=== PATIENT | female | born 1995 | race American Indian/Alaskan Native ===

== ENCOUNTER 2016-08-25 12:37 | Emergency (ER) | payer OTHER ==
[2016-08-25 12:57] VITALS: BP 130/81
[2016-08-25] MEDS ORDERED: TORADOL IM ONE (20:32)
--- NOTE | 2016-08-25 20:35 | Emergency Department Report ---
ED ENT HPI - General Chief complaint: Sore Throat Stated complaint: SOB/CHEST PAIN/SORE THROAT Time Seen by Provider: 08/25/16 20:30 Source: patient Mode of arrival: Ambulatory Limitations: No Limitations - History of Present Illness Initial comments: Patient reports sore throat, non-productive cough, chest discomfort from coughing and headache that started yesterday. LMP 08/24/16 MD complaint: sore throat Onset/Timin -: days(s) Location: throat, other (headache) Severity: severe Severity scale (0 -10): 9 Quality: aching Consistency: constant Improves with: none Worsens with: swallowing, eating Context-Epistaxis: other (none) Context- Dental: other (none) Context- Ear: other (none) Associated Symptoms: cough, pain with swallowing, sore throat, rhinorrhea. denies: gum swelling, toothache, tinnitus, hearing loss, discharge from ear - Related Data Previous Rx's Medication Instructions Recorded Last Taken Type oxyCODONE /ACETAMINOPHEN [Percocet 1 - 2 tab PO Q4HR PRN #30 tablet 09/28/15 18:00 Rx 5/325 mg] 1 - 2 TAB Amoxicillin/K Clav Tab [Augmentin 1 tab PO Q12HR #20 tab 12/18/15 Unknown Rx 875 mg] Fluticasone [Flonase] 2 spray NS QDAY #1 bottle 12/18/15 Unknown Rx Loratadine [Claritin] 10 mg PO DAILY #30 tablet 12/18/15 Unknown Rx Prednisone [predniSONE 10 mg 10 mg PO .TAPER #1 tab.ds.pk 12/18/15 Unknown Rx (6-Day Pack, 21 Tabs)] Promethazine /Codeine 5 ml PO Q6H PRN #150 ml 12/18/15 Unknown Rx [Phenergan/Codeine 6.25-10 mg/5 ml] Benzonatate [Tessalon Perles] 100 mg PO Q8HR #12 capsule 08/25/16 Unknown Rx Cetirizine HCl [ZyrTEC] 10 mg PO DAILY #30 capsule 08/25/16 Unknown Rx Fluticasone [Flonase] 1 spray NS QDAY #1 bottle 08/25/16 Unknown Rx Ibuprofen [Motrin 800 MG tab] 800 mg PO TID PRN #30 tablet 08/25/16 Unknown Rx Allergies Allergy/AdvReac Type Severity Reaction Status Date / Time No Known Allergies Allergy Verified 04/26/15 18:28 ED Dental HPI - General Chief complaint: Sore Throat Stated complaint: SOB/CHEST PAIN/SORE THROAT Source: patient Mode of arrival: Ambulatory Limitations: No Limitations - Related Data Previous Rx's Medication Instructions Recorded Last Taken Type oxyCODONE /ACETAMINOPHEN [Percocet 1 - 2 tab PO Q4HR PRN #30 tablet 09/28/15 18:00 Rx 5/325 mg] 1 - 2 TAB Amoxicillin/K Clav Tab [Augmentin 1 tab PO Q12HR #20 tab 12/18/15 Unknown Rx 875 mg] Fluticasone [Flonase] 2 spray NS QDAY #1 bottle 12/18/15 Unknown Rx Loratadine [Claritin] 10 mg PO DAILY #30 tablet 12/18/15 Unknown Rx Prednisone [predniSONE 10 mg 10 mg PO .TAPER #1 tab.ds.pk 12/18/15 Unknown Rx (6-Day Pack, 21 Tabs)] Promethazine /Codeine 5 ml PO Q6H PRN #150 ml 12/18/15 Unknown Rx [Phenergan/Codeine 6.25-10 mg/5 ml] Benzonatate [Tessalon Perles] 100 mg PO Q8HR #12 capsule 08/25/16 Unknown Rx Cetirizine HCl [ZyrTEC] 10 mg PO DAILY #30 capsule 08/25/16 Unknown Rx Fluticasone [Flonase] 1 spray NS QDAY #1 bottle 08/25/16 Unknown Rx Ibuprofen [Motrin 800 MG tab] 800 mg PO TID PRN #30 tablet 08/25/16 Unknown Rx Allergies Allergy/AdvReac Type Severity Reaction Status Date / Time No Known Allergies Allergy Verified 04/26/15 18:28 ED Review of Systems ROS: Stated complaint: SOB/CHEST PAIN/SORE THROAT Other details as noted in HPI Constitutional: chills, diaphoresis, fever, malaise, weakness Eyes: denies: eye pain, eye discharge, vision change ENT: throat pain, congestion (nasal). denies: ear pain, dental pain, hearing loss, epistaxis Respiratory: cough (non-productive), shortness of breath (nasal). denies: orthopnea, SOB with exertion, SOB at rest, stridor, wheezing Cardiovascular: chest pain (discomfort from coughing). denies: palpitations, dyspnea on exertion, orthopnea, edema, syncope, paroxysmal nocturnal dyspnea Gastrointestinal: denies: abdominal pain, nausea, vomiting, diarrhea, constipation Skin: denies: rash, lesions, change in color, change in hair/nails, pruritus Neurological: headache. denies: weakness, numbness, paresthesias, confusion, abnormal gait, vertigo ED Past Medical Hx - Past Medical History Hx Hypertension: No Hx Heart Attack/AMI: No Hx Congestive Heart Failure: No Hx Diabetes: No Hx Deep Vein Thrombosis: No Hx Renal Disease: No Hx Sickle Cell Disease: No Hx Headaches / Migraines: Yes (MIGRAINE) Hx Seizures: No Hx Asthma: Yes (last attack > 4yrs) Hx COPD: No Hx HIV: No Additional medical history: anemia transfusions x 2 p first child - Surgical History Additional Surgical History: T&A - Social History Smoking Status: Current Some Day Smoker Substance Use Type: None - Medications Home Medications: Home Medications Medication Instructions Recorded Confirmed Last Taken Type oxyCODONE /ACETAMINOPHEN [Percocet 1 - 2 tab PO Q4HR PRN #30 tablet 09/28/1508/2310/05/15 18:00 Rx 5/325 mg] 1 - 2 TAB Amoxicillin/K Clav Tab [Augmentin 1 tab PO Q12HR #20 tab 12/18/15 Unknown Rx 875 mg] Fluticasone [Flonase] 2 spray NS QDAY #1 bottle 12/18/15 Unknown Rx Loratadine [Claritin] 10 mg PO DAILY #30 tablet 12/18/15 Unknown Rx Prednisone [predniSONE 10 mg 10 mg PO .TAPER #1 tab.ds.pk 12/18/15 Unknown Rx (6-Day Pack, 21 Tabs)] Promethazine /Codeine 5 ml PO Q6H PRN #150 ml 12/18/15 Unknown Rx [Phenergan/Codeine 6.25-10 mg/5 ml] Benzonatate [Tessalon Perles] 100 mg PO Q8HR #12 capsule 08/25/16 Unknown Rx Cetirizine HCl [ZyrTEC] 10 mg PO DAILY #30 capsule 08/25/16 Unknown Rx Fluticasone [Flonase] 1 spray NS QDAY #1 bottle 08/25/16 Unknown Rx Ibuprofen [Motrin 800 MG tab] 800 mg PO TID PRN #30 tablet 08/25/16 Unknown Rx ED Physical Exam - General Limitations: No Limitations General appearance: alert, in no apparent distress - Head Head exam: Present: atraumatic - Eye Eye exam: Present: normal appearance, PERRL, EOMI Pupils: Present: normal accommodation. Absent: irregular, unequal - ENT ENT exam: Present: normal orophraynx, mucous membranes moist, TM's normal bilaterally, normal external ear exam, other (swelling to nasal turbinates with watery drain). Absent: mucous membranes dry - Expanded ENT Exam Expanded Ear exam: Present: normal external inspection. Absent: auricular hematoma, auricular trauma Mouth exam: Present: normal external inspection, tongue normal. Absent: drooling, trismus, muffled voice, tongue elevation, laceration Teeth exam: Present: normal inspection Throat exam: Positive: normal inspection. Negative: tonsillar erythema, tonsillomegaly, tonsillar exudate, R peritonsillar mass, L peritonsillar mass - Neck Neck exam: Present: normal inspection, full ROM. Absent: tenderness, meningismus, lymphadenopathy, thyromegaly - Respiratory Respiratory exam: Present: normal lung sounds bilaterally. Absent: respiratory distress, wheezes, rales, rhonchi, stridor, chest wall tenderness, accessory muscle use, decreased breath sounds, prolonged expiratory - Cardiovascular Cardiovascular Exam: Present: regular rate, normal rhythm, normal heart sounds. Absent: systolic murmur, diastolic murmur, rubs, gallop, clicks, JVD, S3, S4 - Back Exam Back exam: Present: normal inspection. Absent: CVA tenderness (R), CVA tenderness (L) - Neurological Exam Neurological exam: Present: alert, oriented X3, CN II-XII intact, normal gait, reflexes normal, other (no focal neuro deficits noted). Absent: motor sensory deficit - Skin Skin exam: Present: warm, dry, intact, normal color. Absent: rash ED Course Vital Signs 08/25/16 12:52 Temperature 98.9 F Pulse Rate 80 Respiratory 18 Rate Blood Pressure 130/81 O2 Sat by Pulse 100 Oximetry ED Medical Decision Making - Lab Data Vital Signs 08/25/16 12:52 Temperature 98.9 F Pulse Rate 80 Respiratory 18 Rate Blood Pressure 130/81 O2 Sat by Pulse 100 Oximetry - EKG Data EKG shows normal: sinus rhythm Rate: normal - EKG Data When compared to previous EKG there are: no significant change Interpretation: no acute changes, normal EKG - Medical Decision Making During the course of ED, analgesic and radiology study were ordered. Patient was sent home with prescriptions for Tesalon Perles, Ibuprofen, Zyrtec and Flonase, instructed to follow up with the selective referral given at discharge , she verbalized understanding - Differential Diagnosis Upper Respiratory Infection, Rhinitis, Rhinorrhea Critical care attestation.: If time is entered above; I have spent that time in minutes in the direct care of this critically ill patient, excluding procedure time. ED Disposition Clinical Impression: Upper respiratory infection Qualifiers: URI type: unspecified viral URI Qualified Code(s): J06.9 - Acute upper respiratory infection, unspecified; B97.89 - Other viral agents as the cause of diseases classified elsewhere Disposition: DISCHARGED TO HOME OR SELFCARE Is pt being admited?: No Does the pt Need Aspirin: No Condition: Stable Instructions: Upper Respiratory Infection (ED) Additional Instructions: Take medication as directed. Follow up with the selective referrals given at discharge. Prescriptions: Fluticasone [Flonase] 1 spray NS QDAY #1 bottle Ibuprofen [Motrin 800 MG tab] 800 mg PO TID PRN #30 tablet PRN Reason: Pain Benzonatate [Tessalon Perles] 100 mg PO Q8HR #12 capsule Cetirizine HCl [ZyrTEC] 10 mg PO DAILY #30 capsule Referrals: PRIMARY CARE, [Primary Care Provider] - 3-[address] [facility] [Outside] - 3-5 Days Forms: Work/School Release Form(ED) Time of Disposition: 20:45
== END 2016-08-25 20:51 | disposition home or self-care (01) ==
LOC: ED 12:37
DX: J06.9 Acute upper respiratory infection, unspecified (principal); B97.89 Other viral agents as the cause of diseases classified elsewhere; G43.909 Migraine, unspecified, not intractable, without status migrainosus; J45.909 Unspecified asthma, uncomplicated; F17.200 Nicotine dependence, unspecified, uncomplicated
CPT/HCPCS: 93005; 93010; 96372; 99282; J1885

== ENCOUNTER 2020-04-19 04:47 | Emergency (ER) | payer MEDICAID, OTHER ==
[2020-04-19 05:29] LABS: Hematocrit 34.3 % (30.3-42.9); Hemoglobin 11.3 gm/dl (10.1-14.3); Mean Corpuscular HGB Conc 33 % (30-34); Mean Corpuscular Volume 89 fl (79-97); Platelet Count 350 K/mm3 (140-440); Red Blood Count 3.88 M/mm3 (3.65-5.03); Red Cell Distribution Width 15.2 % (13.2-15.2)
[2020-04-19 05:50] LABS: Alanine Aminotransferase 10 units/L (7-56); Albumin 3.9 g/dL (3.9-5); Blood Urea Nitrogen 9 mg/dL (7-17); Calcium 8.8 mg/dL (8.4-10.2); Hemolysis Index 1
[2020-04-19 06:02] LABS: BUN/Creatinine Ratio 18
[2020-04-19 06:10] LABS: Bilirubin,Urine NEG (Negative); Blood,Urine LG (Negative); Color,Urine Yellow (Yellow); Mucus,Urine FEW /HPF; Protein,Urine <15 mg/dL mg/dL (Negative)
[2020-04-19 06:29] LABS: Total Cells Counted 100
[2020-04-19 06:30] LABS: Anisocytosis Few; Hypochromasia Few; Platelet Estimate Consistent w Auto
--- NOTE | 2020-04-19 07:43 | Emergency Department Report ---
ED Abdominal Pain HPI - General Chief Complaint: Abdominal Pain Stated Complaint: LEFT SIDED ABDOMINAL PAIN Time Seen by Provider: 04/19/20 07:41 Source: patient Mode of arrival: Ambulatory Limitations: No Limitations - History of Present Illness Initial Comments: 24-year-old female who is a somewhat poor historian awoke from sleep last night with left lower quadrant pain. She described it as feeling a pop. She states that she has not had pain like this before. She does admit to painful periods in the past. She states that she is currently on her menses. She has no history of ectopic but has had a previous tubal ligation. She has a persistent dull ache in the left lower quadrant that does not radiate. She does not complain of fever or chills, nausea or vomiting, no diarrhea and no symptoms otherwise. Patient currently on expected menses. MD Complaint: abdominal pain -: During the night Location: LLQ (Awoke with pain) Radiation: none Migration to: no migration Severity scale (0 -10): 9 Quality: aching Consistency: constant Improves With: nothing Worsens With: nothing Associated Symptoms: denies other symptoms - Related Data Previous Rx's Medication Instructions Recorded Last Taken Type HYDROcodone/APAP 5-325 [[place] 1 each PO Q6HR PRN #7 tablet 04/19/20 Unknown Rx 5/325] Allergies Allergy/AdvReac Type Severity Reaction Status Date / Time No Known Allergies Allergy Verified 04/26/15 18:28 ED Review of Systems ROS: Stated complaint: LEFT SIDED ABDOMINAL PAIN Other details as noted in HPI Constitutional: denies: chills, fever Eyes: denies: eye pain, eye discharge, vision change ENT: denies: ear pain, throat pain Respiratory: denies: cough, shortness of breath, wheezing Cardiovascular: denies: chest pain, palpitations Endocrine: no symptoms reported Gastrointestinal: as per HPI, abdominal pain. denies: nausea, diarrhea Genitourinary: denies: urgency, dysuria, discharge Musculoskeletal: denies: back pain, joint swelling, arthralgia Skin: denies: rash, lesions Neurological: denies: headache, weakness, paresthesias Psychiatric: denies: anxiety, depression Hematological/Lymphatic: denies: easy bleeding, easy bruising ED Past Medical Hx - Past Medical History Previous Medical History?: Yes Hx Hypertension: No Hx Heart Attack/AMI: No Hx Congestive Heart Failure: No Hx Diabetes: No Hx Deep Vein Thrombosis: No Hx Renal Disease: No Hx Sickle Cell Disease: No Hx Headaches / Migraines: Yes (MIGRAINE) Hx Seizures: No Hx Asthma: Yes (last attack > 4yrs) Hx COPD: No Hx HIV: No Additional medical history: anemia transfusions x 2 p first child - Surgical History Past Surgical History?: Yes Additional Surgical History: T&A - Social History Smoking Status: Current Every Day Smoker Substance Use Type: None - Medications Home Medications: Home Medications Medication Instructions Recorded Confirmed Last Taken Type HYDROcodone/APAP 5-325 [[place] 1 each PO Q6HR PRN #7 tablet 04/19/20 Unknown Rx 5/325] ED Physical Exam - General Limitations: No Limitations General appearance: alert, in no apparent distress - Head Head exam: Present: atraumatic, normocephalic - Eye Eye exam: Present: normal appearance - ENT ENT exam: Present: mucous membranes moist - Neck Neck exam: Present: normal inspection. Absent: tenderness, meningismus - Respiratory Respiratory exam: Present: normal lung sounds bilaterally. Absent: respiratory distress - Cardiovascular Cardiovascular Exam: Present: regular rate, normal rhythm. Absent: systolic murmur, diastolic murmur, rubs, gallop - GI/Abdominal GI/Abdominal exam: Present: soft, distended, guarding, normal bowel sounds. Absent: tenderness, rebound, rigid - External exam: Present: normal external exam Speculum exam: Present: normal speculum exam Bi-manual exam: Present: normal bi-manual exam. Absent: cervical motion tendernes, adnexal tenderness, adnexal mass - Extremities Exam Extremities exam: Present: normal inspection - Back Exam Back exam: Present: normal inspection - Neurological Exam Neurological exam: Present: alert, oriented X3, CN II-XII intact. Absent: motor sensory deficit - Psychiatric Psychiatric exam: Present: normal affect, normal mood - Skin Skin exam: Present: warm, dry, intact, normal color. Absent: rash ED Course Vital Signs 04/19/20 04/19/20 04/19/20 04:52 07:30 07:42 Temperature 98.3 F 97.9 F Pulse Rate 89 75 Respiratory 16 20 18 Rate Blood Pressure 123/82 Blood Pressure 115/76 [Left] O2 Sat by Pulse 94 100 100 Oximetry 04/19/20 04/19/20 04/19/20 08:05 10:11 10:40 Temperature 97.9 F Pulse Rate 72 Respiratory 18 20 18 Rate Blood Pressure Blood Pressure 101/65 [Left] O2 Sat by Pulse 98 Oximetry ED Medical Decision Making - Lab Data Result diagrams: 04/19/20 04:59 04/19/20 04:59 Laboratory Results - last 24 hr 04/19/20 04/19/20 04/19/20 04:59 04:59 04:59 WBC 6.9 RBC 3.88 Hgb 11.3 Hct 34.3 MCV 89 MCH 29 MCHC 33 RDW 15.2 Plt Count 350 Lymph % (Auto) Office Clerk Assistant Add Manual Diff Complete Total Counted 100 Seg Neutrophils % Office Clerk Assistant Seg Neuts % (Manual) 30.0 L Band Neutrophils % 0 Lymphocytes % (Manual) 58.0 H Reactive Lymphs % (Man) 0 Monocytes % (Manual) 10.0 H Eosinophils % (Manual) 1.0 Basophils % (Manual) 1.0 Metamyelocytes % 0 Myelocytes % 0 Promyelocytes % 0 Blast Cells % 0 Nucleated RBC % Not Reportable Seg Neutrophils # Man 2.1 Band Neutrophils # 0.0 Lymphocytes # (Manual) 4.0 Abs React Lymphs (Man) 0.0 Monocytes # (Manual) 0.7 Eosinophils # (Manual) 0.1 Basophils # (Manual) 0.1 Metamyelocytes # 0.0 Myelocytes # 0.0 Promyelocytes # 0.0 Blast Cells # 0.0 WBC Morphology Not Reportable Hypersegmented Neuts Not Reportable Hyposegmented Neuts Not Reportable Hypogranular Neuts Not Reportable Smudge Cells Not Reportable Toxic Granulation Not Reportable Toxic Vacuolation Not Reportable Dohle Bodies Not Reportable Pelger-Huet Anomaly Not Reportable Kellee Rods Not Reportable Platelet Estimate Consistent w auto Clumped Platelets Not Reportable Plt Clumps, EDTA Not Reportable Large Platelets Not Reportable Giant Platelets Not Reportable Platelet Satelliting Not Reportable Plt Morphology Comment Not Reportable RBC Morphology Not Reportable Dimorphic RBCs Not Reportable Polychromasia Not Reportable Hypochromasia Few Poikilocytosis Not Reportable Anisocytosis Few Microcytosis Not Reportable Macrocytosis Not Reportable Spherocytes Not Reportable Pappenheimer Bodies Not Reportable Sickle Cells Not Reportable Target Cells Not Reportable Tear Drop Cells Not Reportable Ovalocytes Not Reportable Helmet Cells Not Reportable [place] Bodies Not Reportable [place] Rings Not Reportable Skylar Cells Not Reportable Bite Cells Not Reportable Crenated Cell Not Reportable Elliptocytes Not Reportable Acanthocytes (Spur) Not Reportable Rouleaux Not Reportable Hemoglobin C Crystals Not Reportable Schistocytes Not Reportable Malaria parasites Not Reportable Abe Bodies Not Reportable Hem Pathologist Commnt No Sodium 139 Potassium 3.8 Chloride 101.7 Carbon Dioxide 24 Anion Gap 17 BUN 9 Creatinine 0.5 L Estimated GFR > 60 BUN/Creatinine Ratio 18 Glucose 100 Calcium 8.8 Total Bilirubin 0.30 AST 18 ALT 10 Alkaline Phosphatase 84 Total Protein 7.3 Albumin 3.9 Albumin/Globulin Ratio 1.1 HCG, Qual Negative Urine Color Urine Turbidity Urine pH Ur Specific [place] Urine Protein Urine Glucose (UA) Urine Ketones Urine Blood Urine Nitrite Urine Bilirubin Urine Urobilinogen Ur Leukocyte Esterase Urine WBC (Auto) Urine RBC (Auto) U Epithel Cells (Auto) Urine Mucus 04/19/20 Unknown WBC RBC Hgb Hct MCV MCH MCHC RDW Plt Count Lymph % (Auto) Add Manual Diff Total Counted Seg Neutrophils % Seg Neuts % (Manual) Band Neutrophils % Lymphocytes % (Manual) Reactive Lymphs % (Man) Monocytes % (Manual) Eosinophils % (Manual) Basophils % (Manual) Metamyelocytes % Myelocytes % Promyelocytes % Blast Cells % Nucleated RBC % Seg Neutrophils # Man Band Neutrophils # Lymphocytes # (Manual) Abs React Lymphs (Man) Monocytes # (Manual) Eosinophils # (Manual) Basophils # (Manual) Metamyelocytes # Myelocytes # Promyelocytes # Blast Cells # WBC Morphology Hypersegmented Neuts Hyposegmented Neuts Hypogranular Neuts Smudge Cells Toxic Granulation Toxic Vacuolation Dohle Bodies Pelger-Huet Anomaly Kellee Rods Platelet Estimate Clumped Platelets Plt Clumps, EDTA Large Platelets Giant Platelets Platelet Satelliting Plt Morphology Comment RBC Morphology Dimorphic RBCs Polychromasia Hypochromasia Poikilocytosis Anisocytosis Microcytosis Macrocytosis Spherocytes Pappenheimer Bodies Sickle Cells Target Cells Tear Drop Cells Ovalocytes Helmet Cells [place] Bodies [place] Rings Skylar Cells Bite Cells Crenated Cell Elliptocytes Acanthocytes (Spur) Rouleaux Hemoglobin C Crystals Schistocytes Malaria parasites Abe Bodies Hem Pathologist Commnt Sodium Potassium Chloride Carbon Dioxide Anion Gap BUN Creatinine Estimated GFR BUN/Creatinine Ratio Glucose Calcium Total Bilirubin AST ALT Alkaline Phosphatase Total Protein Albumin Albumin/Globulin Ratio HCG, Qual Urine Color Yellow Urine Turbidity Clear Urine pH 6.0 Ur Specific [place] 1.019 Urine Protein <15 mg/dl Urine Glucose (UA) Neg Urine Ketones Tr Urine Blood Lg Urine Nitrite Neg Urine Bilirubin Neg Urine Urobilinogen 4.0 Ur Leukocyte Esterase Neg Urine WBC (Auto) 1.0 Urine RBC (Auto) 35.0 U Epithel Cells (Auto) 4.0 Urine Mucus Few - Radiology Data Radiology results: report reviewed IMPRESSION: 1. No acute abdominopelvic pathology to explain this patient's symptoms. 2. Hepatomegaly. 3. Prominent right inguinal lymph node, likely reactive. No pathology seen on U/S - Medical Decision Making Patient with acute abdominal pain and tenderness. 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 We will proceed with ultrasound. Critical care attestation.: If time is entered above; I have spent that time in minutes in the direct care of this critically ill patient, excluding procedure time. ED Disposition Clinical Impression: Left lower quadrant pain, Dysmenorrhea Disposition: - TO HOME OR SELFCARE Is pt being admited?: No Does the pt Need Aspirin: No Condition: Stable Instructions: Abdominal Pain (ED), Dysmenorrhea (ED) Additional Instructions: Return any acute change or problem. 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 Prescriptions: HYDROcodone/APAP 5-325 [[place] 5/325] 1 each PO Q6HR PRN #7 tablet PRN Reason: Pain Referrals: DAO NICHOLAS MD [Primary Care Provider] - 3-5 Days Time of Disposition: 13:05
[2020-04-19] MEDS ORDERED: MORPHINE 2 MG/1 ML INJ IV ONE ×2 (07:46→10:32)
[2020-04-19] MEDS ORDERED: ONDANSETRON 4 MG/2 ML INJ IV ONE (07:46)
--- NOTE | 2020-04-19 09:14 | Ultrasound Report ---
ULTRASOUND PELVIS INDICATION / CLINICAL INFORMATION: acute LLQ pain. TECHNIQUE: Transabdominal and Transvaginal. Duplex Color Doppler used: Yes. COMPARISON: 11/15/2014 ultrasound pelvis FINDINGS: UTERUS: 9.7 x 5.2 x 6.2 cm. Endometrial thickness is 5 mm in this premenopausal patient. No significa nt abnormality. RIGHT ADNEXA: No significant ovarian cyst or mass. Normal color Doppler blood flow. LEFT ADNEXA: No significant ovarian cyst or mass. Normal color Doppler blood flow. URINARY BLADDER: No significant abnormality. FREE FLUID: None. ADDITIONAL FINDINGS: Subcentimeter anechoic focus adjacent to the uterus possibly representing a nabo thian cyst. IMPRESSION: 1. No significant abnormality. Signer Name: Ruy Pelletier MD Signed: 04/19/2020 9:10 AM Workstation Name: [id number]
--- NOTE | 2020-04-19 11:43 | Cat Scan Report ---
CT ABDOMEN AND PELVIS WITH CONTRAST INDICATION / CLINICAL INFORMATION: MAIN. TECHNIQUE: Axial CT images were obtained through the abdomen and pelvis after 100 cc Omni [address]. [address] scans at this location are performed using CT dose reduction for ALARA by means of automated expos ure control. COMPARISON: Pelvic and transvaginal ultrasound 04/19/2020; renal ultrasound 04/25/2011 FINDINGS: LOWER CHEST: No significant abnormality. HEPATOBILIARY: Enlarged liver measuring 19.8 cm. No focal lesion. No significant biliary abnormality. PANCREAS: No significant abnormality. SPLEEN: No significant abnormality. ADRENALS: No significant abnormality. GENITOURINARY: No significant abnormality. GASTROINTESTINAL/MESENTERY: No bowel obstruction or inflammation. Appendix is unremarkable. No free a ir or free fluid. RETROPERITONEUM: No significant adenopathy. REPRODUCTIVE ORGANS: No significant abnormality. VASCULAR: No significant abnormality. SKELETAL SYSTEM: No significant abnormality. ADDITIONAL FINDINGS: Prominent right inguinal lymph node measuring up to 1.5 cm. IMPRESSION: 1. No acute abdominopelvic pathology to explain this patient's symptoms. 2. Hepatomegaly. 3. Prominent right inguinal lymph node, likely reactive. Signer Name: Ruy Pelletier MD Signed: 04/19/2020 11:38 AM Workstation Name: [id number]
[2020-04-19 13:23] VITALS: BP 95/60
== END 2020-04-19 13:24 | disposition home or self-care (01) ==
LOC: ED 04:47
DX: N94.6 Dysmenorrhea, unspecified (principal); R10.32 Left lower quadrant pain; G43.909 Migraine, unspecified, not intractable, without status migrainosus; J45.909 Unspecified asthma, uncomplicated; D64.9 Anemia, unspecified; F17.200 Nicotine dependence, unspecified, uncomplicated; Z79.899 Other long term (current) drug therapy; Z98.890 Other specified postprocedural states
CPT/HCPCS: 36415; 74177; 76830; 76856; 80053; 81001; 84703; 85007; 85025; 87591; 96374; 96375; 96376; 99284; J2270; J2405; Q9967

== ENCOUNTER 2021-01-15 06:04 | Emergency (ER) | payer MEDICAID ==
[2021-01-15 07:24] LABS: Basophils # (Auto) 0.1 K/mm3 (0.0-0.1); Basophils % (Auto) 0.8 % (0.0-1.8); Eosinophils % (Auto) 0.1 % (0.0-4.3); Hemoglobin 11.6 gm/dl (10.1-14.3); Lymphocytes # (Auto) 1.8 K/mm3 (1.2-5.4); Lymphocytes % (Auto) 27.2 % (13.4-35.0); Mean Corpuscular HGB Conc 32 % (30-34); Mean Corpuscular Volume 88 fl (79-97); Monocytes # (Auto) 0.9 K/mm3 (0.0-0.8); Monocytes % (Auto) 13.6 % (0.0-7.3); Platelet Count 289 K/mm3 (140-440); Red Blood Count 4.07 M/mm3 (3.65-5.03); Red Cell Distribution Width 14.7 % (13.2-15.2)
[2021-01-15 07:49] LABS: Alanine Aminotransferase 11 units/L (7-56); Albumin 3.9 g/dL (3.9-5); Blood Urea Nitrogen 9 mg/dL (7-17); Calcium 8.9 mg/dL (8.4-10.2); Hemolysis Index 0
[2021-01-15 07:52] LABS: BUN/Creatinine Ratio 15
[2021-01-15] MEDS ORDERED: MORPHINE 2 MG/1 ML INJ IV ONE (08:14)
[2021-01-15] MEDS ORDERED: ONDANSETRON 4 MG/2 ML INJ IV ONE (08:14)
[2021-01-15] MEDS ORDERED: SODIUM CHLORIDE 0.9% 1000 ML 1,000 ML IV ONE (08:14)
[2021-01-15] MEDS ORDERED: KETOROLAC 30 MG/1 ML INJ IV ONE (08:14)
--- NOTE | 2021-01-15 08:15 | Emergency Department Report ---
ED Back Pain/Injury HPI - General Chief Complaint: Back Pain/Injury Stated Complaint: WEAKNESS Time Seen by Provider: 01/15/21 08:05 Source: patient, EMS Limitations: No Limitations - History of Present Illness Initial Comments: 25-year-old female, history of anemia, presents to ED with complaint of back pain since yesterday. Patient reports onset of right-sided mid back pain at around 12 noon on yesterday. Patient states she called EMS at around 5 PM. She was told by EMS that she had a fever and patient was given a dose of Toradol but was not transported to the ED. Patient states she had to call EMS again this morning because the back pain returned. Patient reports nausea and one episode of vomiting. She denies any abdominal pain. Patient reports urinary frequency for the last 2 to 3 days. Patient reports history of kidney infection last and states this feels similar. MD Complaint: back pain -: days(s) (1) Similar Symptoms Previously: Yes Place: home Radiation: none Severity: severe Quality: aching Consistency: constant Improves With: none Worsens With: movement Associated Symptoms: weakness, fever/chills. denies: abdominal pain - Related Data Previous Rx's Medication Instructions Recorded Last Taken Type HYDROcodone/APAP 5-325 [[place] 1 each PO Q6HR PRN #7 tablet 04/19/20 Unknown Rx 5/325] Amoxicillin/K Clav Tab [Augmentin 1 tab PO Q12HR 10 Days #20 tab 01/15/21 Unknown Rx 875 mg] HYDROcodone/APAP 5-325 [[place] 1 each PO Q6HR PRN #7 tablet 01/15/21 Unknown Rx 5/325] Naproxen [Naprosyn] 500 mg PO BID #20 tablet 01/15/21 Unknown Rx Ondansetron [Zofran Odt] 4 mg PO Q8HR PRN #20 tab.rapdis 01/15/21 Unknown Rx Allergies Allergy/AdvReac Type Severity Reaction Status Date / Time ciprofloxacin [From Cipro] Allergy Unknown Verified 01/15/21 08:25 ED Review of Systems ROS: Stated complaint: WEAKNESS Other details as noted in HPI Comment: All other systems reviewed and negative Constitutional: fever Gastrointestinal: nausea, vomiting. denies: abdominal pain Genitourinary: frequency Musculoskeletal: back pain ED Past Medical Hx - Past Medical History Hx Hypertension: No Hx Heart Attack/AMI: No Hx Congestive Heart Failure: No Hx Diabetes: No Hx Deep Vein Thrombosis: No Hx Renal Disease: No Hx Sickle Cell Disease: No Hx Headaches / Migraines: Yes (MIGRAINE) Hx Seizures: No Hx Asthma: Yes (last attack > 4yrs) Hx COPD: No Hx HIV: No Additional medical history: anemia transfusions x 2 p first child - Surgical History Additional Surgical History: T&A - Social History Smoking Status: Never Smoker Substance Use Type: None - Medications Home Medications: Home Medications Medication Instructions Recorded Confirmed Last Taken Type HYDROcodone/APAP 5-325 [[place] 1 each PO Q6HR PRN #7 tablet 04/19/20 Unknown Rx 5/325] Amoxicillin/K Clav Tab [Augmentin 1 tab PO Q12HR 10 Days #20 tab 01/15/21 Unknown Rx 875 mg] HYDROcodone/APAP 5-325 [[place] 1 each PO Q6HR PRN #7 tablet 01/15/21 Unknown Rx 5/325] Naproxen [Naprosyn] 500 mg PO BID #20 tablet 01/15/21 Unknown Rx Ondansetron [Zofran Odt] 4 mg PO Q8HR PRN #20 tab.rapdis 01/15/21 Unknown Rx ED Physical Exam - General Limitations: No Limitations General appearance: alert, in no apparent distress - Head Head exam: Present: atraumatic, normocephalic - Eye Eye exam: Present: normal appearance, EOMI - ENT ENT exam: Present: mucous membranes moist - Neck Neck exam: Present: normal inspection - Respiratory Respiratory exam: Present: normal lung sounds bilaterally. Absent: respiratory distress - Cardiovascular Cardiovascular Exam: Present: regular rate, normal rhythm - GI/Abdominal GI/Abdominal exam: Present: soft. Absent: distended, tenderness - Extremities Exam Extremities exam: Present: normal inspection - Back Exam Back exam: Present: CVA tenderness (R). Absent: CVA tenderness (L) - Neurological Exam Neurological exam: Present: alert, oriented X3 - Psychiatric Psychiatric exam: Present: normal affect, normal mood - Skin Skin exam: Present: warm, dry, intact, normal color ED Course Vital Signs 01/15/21 01/15/21 01/15/21 06:24 08:19 10:34 Temperature 100.3 F H 99.3 F 99.0 F Pulse Rate 91 H 76 Respiratory 18 17 Rate Blood Pressure 115/78 Blood Pressure 110/57 [Left] O2 Sat by Pulse 96 95 Oximetry ED Medical Decision Making - Lab Data Result diagrams: 01/15/21 07:01 01/15/21 07:01 - Medical Decision Making 25-year-old female presents to ED with fever and right flank pain. Patient has CVA tenderness on the right. No abdominal tenderness on exam. Labs are unremarkable, WBCs and kidney function is normal. UA showed no evidence of UTI with positive nitrites, 4+ bacteria. Here in the ED, patient given IV fluids, morphine, Zofran, Toradol, and Rocephin. Vital signs are stable, patient is feeling much better at this time. She feels comfortable with discharge home. Patient has allergy to Cipro, therefore she will be discharged home with Augmentin. Outpatient follow-up advised. Return precautions given. - Differential Diagnosis UTI, pyelonephritis, pneumonia Critical care attestation.: If time is entered above; I have spent that time in minutes in the direct care o f this critically ill patient, excluding procedure time. ED Disposition Clinical Impression: Acute pyelonephritis Disposition: TO HOME OR SELFCARE Is pt being admited?: No Condition: Stable Instructions: Pyelonephritis, Adult, [id number] Prescriptions: Amoxicillin/K Clav Tab [Augmentin 875 mg] 1 tab PO Q12HR 10 Days #20 tab Naproxen [Naprosyn] 500 mg PO BID #20 tablet HYDROcodone/APAP 5-325 [[place] 5/325] 1 each PO Q6HR PRN #7 tablet PRN Reason: Pain Ondansetron [Zofran Odt] 4 mg PO Q8HR PRN #20 tab.rapdis PRN Reason: Vomiting Referrals: PRIMARY MD TIFFANIE [Primary Care Provider] - 3-5 Days [facility] [Provider Group] - 3-5 Days LOC ELIAS MD [Staff Physician] - 3-5 Days
[2021-01-15 08:46] LABS: Bacteria,Urine 4+ /HPF (Negative); Bilirubin,Urine NEG (Negative); Blood,Urine SM (Negative); Color,Urine Yellow (Yellow); Mucus,Urine 3+ /HPF
[2021-01-15] MEDS ORDERED: cefTRIAXone/NS 1 GM/50 ML 1 GM/50 ML BAG IV ONE (09:09)
[2021-01-15 10:35] VITALS: BP 110/57
== END 2021-01-15 11:39 | disposition home or self-care (01) ==
LOC: ED 06:04
DX: N10 Acute pyelonephritis (principal); G43.909 Migraine, unspecified, not intractable, without status migrainosus; J45.909 Unspecified asthma, uncomplicated; D64.9 Anemia, unspecified; Z79.899 Other long term (current) drug therapy; Z88.8 Allergy status to other drugs, medicaments and biological substances
CPT/HCPCS: 36415; 80053; 81001; 84703; 85025; 87086; 96361; 96365; 96375; 99284; J0696; J1885; J2270; J2405; J7030

== ENCOUNTER 2022-02-04 08:55 | Emergency (ER) | payer MEDICAID ==
[2022-02-04] MEDS ORDERED: SODIUM CHLORIDE 0.9% 1000 ML 1,000 ML IV ONE (09:18)
[2022-02-04] MEDS ORDERED: ONDANSETRON 4 MG/2 ML INJ IV ONE (09:18)
--- NOTE | 2022-02-04 09:34 | Emergency Department Report ---
ED N/V/D HPI - General Chief complaint: Nausea/Vomiting/Diarrhea Stated complaint: POSSIBLE FOOD POISONING Time Seen by Provider: 02/04/22 09:18 Source: EMS Mode of arrival: Stretcher Limitations: No Limitations - History of Present Illness Initial comments: Patient is a 26-year-old female that comes to the ER after eating a juicy crab complaining of nausea vomiting and diarrhea with acute onset since 5 AM this morning. She comes to the ER via EMS. Last menstrual period now. She denies associated abdominal pain other than cramping with diarrhea MD complaint: nausea, vomiting, diarrhea -: Sudden, hour(s) Description of Vomiting: food contents, watery Description of Diarrhea: water Associated Abdominal Pain: No Radiation: none Severity: moderate Improves with: none Worsens with: none Context: possible food poisoning Associated Symptoms: denies other symptoms - Related Data Previous Rx's Medication Instructions Recorded Last Taken Type HYDROcodone/APAP 5-325 [[place] 1 each PO Q6HR PRN #7 tablet 04/19/20 Unknown Rx 5/325] Amoxicillin/K Clav Tab [Augmentin 1 tab PO Q12HR 10 Days #20 tab 01/15/21 Unknown Rx 875 mg] HYDROcodone/APAP 5-325 [[place] 1 each PO Q6HR PRN #7 tablet 01/15/21 Unknown Rx 5/325] Naproxen [Naprosyn] 500 mg PO BID #20 tablet 01/15/21 Unknown Rx Ondansetron [Zofran Odt] 4 mg PO Q8HR PRN #20 tab.rapdis 01/15/21 Unknown Rx Ondansetron [Zofran Odt] 4 mg PO Q8HR PRN #10 tab.rapdis 02/04/22 Unknown Rx Allergies Allergy/AdvReac Type Severity Reaction Status Date / Time ciprofloxacin [From Cipro] Allergy Unknown Verified 01/15/21 08:25 ED Review of Systems ROS: Stated complaint: POSSIBLE FOOD POISONING Other details as noted in HPI Comment: All other systems reviewed and negative ED Past Medical Hx - Past Medical History Previous Medical History?: Yes Hx Hypertension: No Hx Heart Attack/AMI: No Hx Congestive Heart Failure: No Hx Diabetes: No Hx Deep Vein Thrombosis: No Hx Renal Disease: No Hx Sickle Cell Disease: No Hx Headaches / Migraines: Yes (MIGRAINE) Hx Seizures: No Hx Asthma: Yes (last attack > 4yrs) Hx COPD: No Hx HIV: No Additional medical history: anemia transfusions x 2 p first child - Surgical History Past Surgical History?: Yes Additional Surgical History: T&A, - Family History Family history: no significant - Social History Smoking Status: Never Smoker Substance Use Type: None - Medications Home Medications: Home Medications Medication Instructions Recorded Confirmed Last Taken Type HYDROcodone/APAP 5-325 [[place] 1 each PO Q6HR PRN #7 tablet 04/19/20 Unknown Rx 5/325] Amoxicillin/K Clav Tab [Augmentin 1 tab PO Q12HR 10 Days #20 tab 01/15/21 Unknown Rx 875 mg] HYDROcodone/APAP 5-325 [[place] 1 each PO Q6HR PRN #7 tablet 01/15/21 Unknown Rx 5/325] Naproxen [Naprosyn] 500 mg PO BID #20 tablet 01/15/21 Unknown Rx Ondansetron [Zofran Odt] 4 mg PO Q8HR PRN #20 tab.rapdis 01/15/21 Unknown Rx Ondansetron [Zofran Odt] 4 mg PO Q8HR PRN #10 tab.rapdis 02/04/22 Unknown Rx ED Physical Exam - General Limitations: No Limitations General appearance: alert, in no apparent distress - Head Head exam: Present: atraumatic, normocephalic - Eye Eye exam: Present: normal appearance - ENT ENT exam: Present: mucous membranes moist - Neck Neck exam: Present: normal inspection - Respiratory Respiratory exam: Present: normal lung sounds bilaterally. Absent: respiratory distress - Cardiovascular Cardiovascular Exam: Present: regular rate, normal rhythm. Absent: systolic murmur, diastolic murmur, rubs, gallop - GI/Abdominal GI/Abdominal exam: Present: soft, normal bowel sounds - Extremities Exam Extremities exam: Present: normal inspection - Back Exam Back exam: Present: normal inspection - Neurological Exam Neurological exam: Present: alert, oriented X3 - Psychiatric Psychiatric exam: Present: normal affect, normal mood - Skin Skin exam: Present: warm, dry, intact, normal color. Absent: rash ED Course Vital Signs 02/04/22 08:57 Temperature 97 F L Pulse Rate 88 Respiratory 18 Rate Blood Pressure 153/73 [Left] O2 Sat by Pulse 97 Oximetry ED Medical Decision Making - Lab Data Result diagrams: 02/04/22 09:24 02/04/22 09:24 - Radiology Data Radiology results: report reviewed, image reviewed No acute process - Medical Decision Making Vital Signs 02/04/22 08:57 Temperature 97 F L Pulse Rate 88 Respiratory 18 Rate Blood Pressure 153/73 [Left] O2 Sat by Pulse 97 Oximetry Labs 02/04/22 02/04/22 02/04/22 09:24 09:24 10:32 WBC 8.7 RBC 4.04 Hgb 11.6 Hct 37.0 MCV 91 MCH 29 MCHC 31 RDW 16.4 H Plt Count 273 Lymph % (Auto) 14.4 [place] % (Auto) 5.7 Eos % (Auto) 0.3 Baso % (Auto) [employer] Lymph # (Auto) 1.2 [place] # (Auto) 0.5 Eos # (Auto) 0.0 Baso # (Auto) 0.0 Seg Neutrophils % 79.3 H Seg Neutrophils # 6.9 Sodium 140 Potassium 4.0 Chloride 103.5 Carbon Dioxide 25 Anion Gap 16 BUN 8 Creatinine 0.6 Estimated GFR > 60 BUN/Creatinine Ratio 13 Glucose 106 H Calcium 8.9 Total Bilirubin 0.40 AST 16 ALT 11 Alkaline Phosphatase 85 Total Protein 7.6 Albumin 4.2 Albumin/Globulin Ratio 1.2 Lipase 18 Urine Color Yellow Urine Turbidity Clear Urine pH 7.0 Ur Specific [place] 1.014 Urine Protein <15 mg/dl Urine Glucose (UA) Neg Urine Ketones Neg Urine Blood Lg Urine Nitrite Neg Urine Bilirubin Neg Urine Urobilinogen < 2.0 Ur Leukocyte Esterase Neg Urine WBC (Auto) 2.0 Urine RBC (Auto) 1.0 U Epithel Cells (Auto) 9.0 Urine Bacteria (Auto) 1+ Urine Mucus Few Urine HCG, Qual Negative CT NOTED Labs noted. UA noted. Currently on menses Medicated with normal saline and Zofran. 1515 patient has had no nausea vomiting or diarrhea while here in the ER. She is being discharged home with discharge plan of care including diet, activity, medications and follow-up. She verbalizes understanding of plan of care. - Differential Diagnosis K STONE/GASTROENTERITIS, , cholecystitis Critical care attestation.: If time is entered above; I have spent that time in minutes in the direct care of this critically ill patient, excluding procedure time. ED Disposition Clinical Impression: Gastroenteritis Disposition: 01 HOME / SELF CARE / HOMELESS Is pt being admited?: No Condition: Stable Instructions: Colitis Additional Instructions: ADVANCE DIET TOLERATED BANANA, RICE, APPLESAUCE AND TOAST AND ADVANCE STAY WELL HYDRATED WITH WATER TYLENOL FOR PAIN ZOFRAN FOR NAUSEA FOLLOW UP WITH PCP AND GI KARTHIK REFERRALS BELOW AVOID SPICY FOODS AND ALCOHOL Prescriptions: Ondansetron [Zofran Odt] 4 mg PO Q8HR PRN #10 tab.rapdis PRN Reason: Vomiting Referrals: МАРИНА ORTEGA PA [Physician Gm] - 3-5 Days COLLINS ALVARADO MD [Staff Physician] - 3-5 Days QIAN PACHECO MD [Staff Physician] - 3-5 Days PRIMARY CARE, [Primary Care Provider] - 3-5 Days Forms: Work/School Release Form(ED) Time of Disposition: 15:06
[2022-02-04 10:56] LABS: Bilirubin,Urine NEG (Negative); Blood,Urine LG (Negative); Color,Urine Yellow (Yellow); Protein,Urine <15 mg/dL mg/dL (Negative); Urobilinogen,Urine < 2.0 mg/dL (<2.0)
[2022-02-04 10:58] LABS: Alanine Aminotransferase 11 units/L (7-56); Albumin 4.2 g/dL (3.9-5); Blood Urea Nitrogen 8 mg/dL (7-17); Calcium 8.9 mg/dL (8.4-10.2); Eosinophils % (Auto) 0.3 % (0.0-4.3); Hemoglobin 11.6 gm/dl (10.1-14.3); Hemolysis Index 19; Lymphocytes # (Auto) 1.2 K/mm3 (1.2-5.4); Lymphocytes % (Auto) 14.4 % (13.4-35.0); Mean Corpuscular HGB Conc 31 % (30-34); Mean Corpuscular Volume 91 fl (79-97); Monocytes # (Auto) 0.5 K/mm3 (0.0-0.8); Monocytes % (Auto) 5.7 % (0.0-7.3); Platelet Count 273 K/mm3 (140-440); Red Blood Count 4.04 M/mm3 (3.65-5.03); Red Cell Distribution Width 16.4 % (13.2-15.2)
[2022-02-04 10:59] LABS: Bacteria,Urine 1+ /HPF (Negative); Mucus,Urine FEW /HPF
[2022-02-04] MEDS ORDERED: KETOROLAC 30 MG/1 ML INJ IV ONE (11:01)
[2022-02-04 11:06] LABS: HCG Qualitative,Urine Negative (Negative)
[2022-02-04 11:10] LABS: BUN/Creatinine Ratio 13
--- NOTE | 2022-02-04 14:41 | Cat Scan Report ---
CT ABDOMEN AND PELVIS WITHOUT CONTRAST HISTORY: FLANK PAIN COMPARISON: 04/19/2020 TECHNIQUE: Routine abdominal and pelvic CT exam performed without contrast. Lack of intravenous cont rast limits evaluation of the vascular and solid organs.. All CT scans at this location are performed using CT dose reduction for ALARA by means of automated exposure control. FINDINGS: CT ABDOMEN: Lung Bases: No significant abnormality. Liver: No significant abnormality. Biliary: No significant abnormality. Spleen: No significant abnormality. Unenlarged. Pancreas: No significant abnormality. Adrenals: No significant abnormality. Kidneys: No significant abnormality. Lymphatics: No lymphadenopathy. Vasculature: No significant abnormality. Bowel/Peritoneum: There is diffuse mild wall thickening of the small bowel without obstruction or gwendolyn e air. CT PELVIC: : No significant abnormality. Lymphatics: No lymphadenopathy. Osseous Structures: No aggressive appearing osseous lesions. Additional Findings: None IMPRESSION: 1. Diffuse mild wall thickening in the small bowel likely indicating enteritis. No obstruction or gwendolyn e air. Signer Name: Evaristo Blancas MD Signed: 02/04/2022 2:35 PM Workstation Name: [email or web address]
[2022-02-04 16:00] VITALS: BP 121/80
== END 2022-02-04 16:00 | disposition home or self-care (01) ==
LOC: ED 08:55
DX: K52.9 Noninfective gastroenteritis and colitis, unspecified (principal); Z88.8 Allergy status to other drugs, medicaments and biological substances; J45.909 Unspecified asthma, uncomplicated
CPT/HCPCS: 36415; 74176; 80053; 81001; 81025; 83690; 85025; 96361; 96374; 96375; 99284; J1885; J2405; J7030